=== PATIENT | male | born 1955 | race Caucasian/White ===

== ENCOUNTER 2019-01-09 09:11 | Emergency (ER) | payer OTHER ==
[2019-01-09 09:19] VITALS: BP 130/94; PULSE 92; TEMP 98.2; BMI 31.5
[2019-01-09] MEDS ORDERED: LIDOCAINE HCL 2% (20ML MULTI-DOSE VIAL) NR ONE (10:23)
[2019-01-09] MEDS ORDERED: ACETAMINOPHEN 500 MG TABLET (FP) PO ONE (11:14)
[2019-01-09] MEDS ORDERED: DIPHTH,PERTUSS(ACELL),TET 0.5 ML DISP.SYRIN IM ONE (11:14)
--- NOTE | 2019-01-09 11:17 | PDOC ---
History of Present Illness - General Chief Complaint: Injury Stated Complaint: RT FOOT INJURY Time Seen by Provider: 01/09/19 09:24 History Source: Patient Exam Limitations: No Limitations - History of Present Illness Initial Comments: 01/09/19 11:14 Patient states was walking is hallway July early when he tripped and struck the bottom of his right foot on a power saw. Is uncertain as to what he cut his foot on whether it was the blade or the handle but patient incurred a approximately 10 cm laceration to the plantar aspect of his right lateral foot. Occurred: reports: just prior to arrival, this morning Severity: reports: mild, moderate Pain Location: reports: lower extremity Method of Injury: Yes: direct blow Loss of Consciousness: no loss of consciousness Past History - Travel Traveled outside of the country in the last 30 days: No Close contact w/someone who was outside of country & ill: No - Past Medical History Allergies/Adverse Reactions: Allergies Allergy/AdvReac Type Severity Reaction Status Date / Time No Known Allergies Allergy Verified 01/09/19 11:18 Home Medications: Ambulatory Orders NK [No Known Home Medication] 01/09/19 COPD: No - Immunization History Immunization Up to Date: No - Suicide/Smoking/Psychosocial Hx Smoking History: Former smoker Have you smoked in the past 12 months: No If you are a former smoker, when did you quit?: 2012 Information on smoking cessation initiated: No Hx Alcohol Use: No Drug/Substance Use Hx: No Review of Systems - Review of Systems Able to Perform ROS?: Yes Is the patient limited Slovak proficient: Yes Constitutional: Yes: Symptoms Reported, See HPI, Malaise Integumentary: Yes: See HPI. No: Symptoms Reported All Other Systems: Reviewed and Negative *Physical Exam - Vital Signs Last Vital Signs Temp Pulse Resp BP Pulse Ox 98.2 F 92 H 18 130/94 98 01/09/19 09:14 01/09/19 09:14 01/09/19 09:14 01/09/19 09:14 01/09/19 09:14 - Physical Exam General Appearance: Yes: Nourished, Appropriately Dressed, Apparent Distress HEENT: positive: SHAYY, Normal ENT Inspection, TMs Normal, Pharynx Normal Musculoskeletal: positive: Normal Inspection Extremity: positive: Normal Capillary Refill, Normal Inspection, Normal Range of Motion Integumentary: positive: Normal Color, Dry, Warm, Other (15 cm laceration extending from midpoint he'll and along the lateral aspect of right foot R aspect. Has full range of motion to toes, able to flex and extend against resistance, neurovascular intact to distal digits.) Neurologic: positive: shaker tender II-XII NML intact, Fully Oriented, Alert *DC/Admit/Observation/Transfer Diagnosis at time of Disposition: Laceration of foot Qualifiers: Encounter type: initial encounter Laterality: right Qualified Code(s): S91.311A - Laceration without foreign body, right foot, initial encounter - Discharge Dispostion Disposition: HOME Condition at time of disposition: Stable Decision to Admit order: No - Referrals - Patient Instructions Printed Discharge Instructions: DI for Laceration Repair Additional Instructions: Rest, elevate, avoid strenuous activity or heavy lifting until sutures are removed Leave dressing on for the next 24 hours, Then may remove dressing gently and wash area with soap and water. Reapply bacitracin ointment and dressing daily for the next 5 days On day #6 keep the wound protected and cover as needed until sutures are removed allowing wound to start to dry May use Tylenol or Motrin for pain relief Suture removal in : 14 Days tetanus/diphtheria/pertussis booster was updated today - Post Discharge Activity
[2019-01-09] MEDS ORDERED: ACETAMINOPHEN 500 MG TABLET (FP) ONE (11:19)
== END 2019-01-09 11:39 | disposition home or self-care (01) ==
LOC: JERFT 09:11
PROC: 0HQMXZZ Repair Right Foot Skin, External Approach (ICD-10-PCS; principal; 2019-01-09)
PROC: 3E0234Z Introduction of Serum, Toxoid and Vaccine into Muscle, Percutaneous Approach (ICD-10-PCS; 2019-01-09)
DX: S91.311A Laceration without foreign body, right foot, initial encounter (principal); W01.111A Fall on same level from slipping, tripping and stumbling with subsequent striking against power tool or machine, initial encounter; Y93.01 Activity, walking, marching and hiking; Y92.018 Other place in single-family (private) house as the place of occurrence of the external cause; Y99.8 Other external cause status
CPT/HCPCS: 90715; 99281-25